=== PATIENT | female | born 1950 | race Caucasian/White ===

== ENCOUNTER → 2018-10-28 14:09 | Outpatient (CLI) | payer MEDICARE, BC ==
[2011-05-17 08:55] VITALS: BMI 25.8
[2018-10-28 14:47] LABS: BASOPHILS 0.2 % (0-2); IMMATURE GRANULOCYTES 0.2 % (0-5); LYMPHOCYTES 14.8 % (15-50); MCH 29.9 pg (26.0-34.0); MCHC 33.3 g/dL (31.0-37.0); MCV 89.6 fL (80.0-100.0); MEAN PLATELET VOLUME 10.3 fL (7.4-10.4); MONOCYTES 9.8 % (2-11); RBC 4.69 10x6/uL (4.00-5.40); RDW 13.4 % (11.5-14.5); WBC 5.8 10x3/uL (4.8-10.8)
[2018-10-28 14:49] LABS: PLATELET COUNT 141 10x3/uL (130-400)
[2018-10-28 15:52] LABS: ERYTHROCYTE SEDIMENTATION RATE 24 mm/hr (0-30)
== END | disposition home or self-care (01) ==
LOC: D.LAB 13:15 → D.CT 14:30
PROVIDERS: ATTEND Internal Medicine Gastroenterology
DX: R10.9 Unspecified abdominal pain (principal); R14.0 Abdominal distension (gaseous); K62.5 Hemorrhage of anus and rectum

== ENCOUNTER → 2019-06-24 07:44 | Outpatient (CLI) | payer MEDICARE, BC ==
[2011-05-17 08:55] VITALS: BMI 25.8
[2019-07-15 15:56] VITALS: BMI 27.5
== END | disposition home or self-care (01) ==
LOC: D.RAD 07:44
PROVIDERS: ATTEND Internal Medicine Gastroenterology
DX: K21.9 Gastro-esophageal reflux disease without esophagitis (principal)

== ENCOUNTER 2019-07-15 13:57 | Outpatient (CLI) | payer MEDICARE, BC ==
[~2019-07-15] VITALS: Ht 162.6 cm; Wt 72.7 kg
[2019-07-15 14:44] LABS: ANION GAP 7.8 mmol/L (8-16); BILIRUBIN - DIRECT 0.1 mg/dL (0.00-0.30); BILIRUBIN - INDIRECT 0.3 mg/dL (0.00-1.00); BILIRUBIN - TOTAL 0.4 mg/dL (0.2-1.3); CALCIUM 9.3 mg/dL (8.5-10.1); CARBON DIOXIDE 32.8 mmol/L (21.0-32.0); CREATININE - SERUM 1.1 mg/dL (0.6-1.3); MAGNESIUM - SERUM 1.9 mg/dL (1.8-2.4); POTASSIUM - SERUM 3.6 mmol/L (3.5-5.1); PROTEIN - SERUM 7.4 g/dL (6.4-8.2)
[2019-07-15 15:56] VITALS: BP 115/56; Ht 162.6 cm; Wt 72.7 kg
== END 2019-07-15 18:14 | disposition home or self-care (01) ==
LOC: D.OPS 13:57
PROVIDERS: ATTEND Family Medicine
DX: E87.6 Hypokalemia (principal); E86.9 Volume depletion, unspecified; R11.2 Nausea with vomiting, unspecified

== ENCOUNTER → 2019-07-19 10:54 | Outpatient (CLI) | payer MEDICARE, BC ==
[2019-07-15 15:56] VITALS: BMI 27.5
== END | disposition home or self-care (01) ==
LOC: D.RAD 10:54 → D.CT 11:30
PROVIDERS: ATTEND Internal Medicine Gastroenterology
DX: R10.9 Unspecified abdominal pain (principal); R11.2 Nausea with vomiting, unspecified; R07.9 Chest pain, unspecified; K22.8 Other specified diseases of esophagus